=== PATIENT | female | born 1950 | race Caucasian/White ===

== ENCOUNTER 2017-03-10 15:20 | Emergency (ER) | payer MEDICARE, BC ==
[2017-03-10] MEDS ORDERED: KETOROLAC TROMETHAMINE 30 MG/ML SOL IM ONE (15:34)
[2017-03-10] MEDS ORDERED: KETOROLAC TROMETHAMINE 30 MG/ML SOL ONE (15:35)
[2017-03-10 16:01] VITALS: RESP 20; TEMP 97.9; O2SAT 100
[2017-03-10] MEDS ORDERED: MORPHINE SULFATE 10 MG/ML SOL IM PRN (17:05)
[2017-03-10] MEDS ORDERED: MORPHINE SULFATE 10 MG/ML SOL ONE (17:06)
[2017-03-10 17:16] VITALS: BP 159/76; PULSE 78
== END 2017-03-10 17:30 | disposition short-term general hospital (02) | DRG 563 ==
LOC: ED 15:20
DX: S42.212A Unspecified displaced fracture of surgical neck of left humerus, initial encounter for closed fracture (principal); W01.198A Fall on same level from slipping, tripping and stumbling with subsequent striking against other object, initial encounter
CPT/HCPCS: 73030; 73590; 99285; J1885; J2270